=== PATIENT | female | born 1965 | race Hispanic/Latino ===

== ENCOUNTER 2017-04-30 14:29 | Emergency (ER) | payer OTHER ==
[~2017-04-30] VITALS: Ht 162.6 cm; Wt 87.5 kg
[2017-04-30] MEDS ORDERED: ONDANSETRON HCL INJ 2 MG/ML VIAL IV STA (14:37)
[2017-04-30] MEDS ORDERED: KETOROLAC TROMETHAMINE 30 MG/ML VIAL IV STA (14:37)
[2017-04-30 15:03] LABS: BASOPHILS % 0.5 % (0.0-1.0); EOSINOPHILS # (AUTO) 0.1 (0.0-0.4); EOSINOPHILS % 1.1 % (0.0-6.0); HEMATOCRIT 36.2 % (34.2-44.1); HEMOGLOBIN 12.5 g/dL (12.0-16.0); LYMPHOCYTES # (AUTO) 2.5 (1.0-3.2); MEAN CORPUSCULAR HEMOGLOBIN 30.6 pg (28-32); MEAN CORPUSCULAR HGB CONC 34.5 g/dL (31-35); MEAN CORPUSCULAR VOLUME 88.7 fL (81-99); MONOCYTES # (AUTO) 0.5 (0.2-0.8); MONOCYTES % 7.3 % (4.4-11.3); NEUTROPHILS # (AUTO) 3.4 (2.1-6.9); NEUTROPHILS % 52.8 % (38.7-80.0); PLATELET COUNT 279 x10e3/uL (140-360); RED BLOOD COUNT 4.08 x10e6/uL (3.6-5.1); RED CELL DISTRIBUTION WIDTH 12.9 % (11.7-14.4)
[2017-04-30 15:22] LABS: ALANINE AMINOTRANSFERASE 12 IU/L (0-55); ALBUMIN 3.8 g/dL (3.5-5.0); ALBUMIN/GLOBULIN RATIO 0.9 (0.8-2.0); ALKALINE PHOSPHATASE 76 IU/L (40-150); ANION GAP 14.7 mmol/L (8-16); BLOOD UREA NITROGEN 18 mg/dL (7-26); BUN/CREATININE RATIO 21 (6-25); CALCIUM 9.2 mg/dL (8.4-10.2); CARBON DIOXIDE 21 mmol/L (22-29); CHLORIDE 108 mmol/L (98-107); CREATINE KINASE 90 IU/L (29-168); CREATININE, SERUM 0.87 mg/dL (0.57-1.11); EST GLOMERULAR FILTRATION RATE > 60 ML/MIN (60-); GLUCOSE 127 mg/dL (74-118); POTASSIUM 3.7 mmol/L (3.5-5.1); SODIUM 140 mmol/L (136-145)
--- NOTE | 2017-04-30 15:27 | Diagnostic Imaging Report ---
EXAM: CT Abdomen and Pelvis WITHOUT contrast INDICATION: Abdominal pain COMPARISON: None. TECHNIQUE: Abdomen and pelvis were scanned utilizing a multidetector helical scanner from the lung base to the pubic symphysis. Coronal and sagittal reformations were obtained. The lack of intravenous contrast limits the evaluation of the solid organs, vasculature, and possible lymphadenopathy. Protocol: General survey without contrast IV CONTRAST: No intravenous contrast was administered as per physician request. ORAL CONTRAST: None. COMPLICATIONS: None. RADIATION DOSE: Total Exam DLP: 596.6 mGy*cm. CTDIvol has been reviewed. It is below the limits set by the Radiation Protocol Committee (RPC). FINDINGS: LINES: None. Lower thorax: No parenchymal abnormality. No pneumothorax. No pleural effusion. Liver: No focal mass. No hepatomegaly. Normal parenchyma. Simple cyst is present in the left lobe of the liver. Gallbladder: Cholecystectomy. Biliary tree: No intrahepatic duct dilation. No extrahepatic duct dilation. Spleen: No splenomegaly. No focal mass. Pancreas: No focal mass. Normal pancreatic duct. No peripancreatic inflammatory changes. Kidneys: Punctate calculus is present in the interpolar region of the right kidney. No obstructing calculi. No hydronephrosis or hydroureter. No cysts. No perinephric soft tissue inflammatory changes. The right kidney is slightly edematous. Adrenal glands: No adrenal nodules. Bladder: Normal urinary bladder. 3.1 mm calculus is present in the urinary bladder, series 3 image 146. Pelvic organs: Normal. GI: No bowel wall thickening. No air-fluid levels. The stomach and small bowel are normal. The colon is normal. Normal appendix. A moderate amount of retained feces limits intraluminal evaluation of the colon. Peritoneum/retroperitoneum: No pneumoperitoneum. No ascites. No drainable fluid collection. Lymph nodes: No lymphadenopathy. . Vessels: No focal abnormality. . Limited evaluation. Bones: No focal abnormality. . Soft tissues: No focal abnormality. IMPRESSION: Calculus within the urinary bladder may represent a recently passed stone. Nonobstructing right nephrolithiasis. Signed by: Dr. Sean Israel M.D. on 04/30/2017 3:24 PM
[2017-04-30 15:28] LABS: TROPONIN I < 0.001 ng/mL (0-0.300)
[2017-04-30 16:52] LABS: BILIRUBIN,URINE NEGATIVE (NEGATIVE); COLOR,URINE YELLOW (YELLOW); KETONES,URINE NEGATIVE (NEGATIVE); LEUKOCYTE ESTERASE ,URINE NEGATIVE (NEGATIVE); NITRITE,URINE NEGATIVE (NEGATIVE); PROTEIN,URINE DIPSTICK NEGATIVE (NEGATIVE); URINE UROBILINOGEN 0.2 mg/dL (0.2 - 1)
[2017-04-30 16:53] LABS: CLARITY,URINE HAZY (CLEAR)
[2017-04-30 16:59] LABS: BACTERIA,URINE FEW /HPF; EPITHELIAL CELLS,URINE FEW /LPF; WBC,URINE (MAN) 0-5 /HPF (0-5)
[2017-04-30 17:01] LABS: RBC,URINE 21-50 /HPF (0-5)
== END 2017-04-30 19:42 | disposition home or self-care (01) ==
LOC: ER 14:29
DX: R10.31 Right lower quadrant pain (principal); R11.2 Nausea with vomiting, unspecified; N20.0 Calculus of kidney; I10 Essential (primary) hypertension; E03.9 Hypothyroidism, unspecified
CPT/HCPCS: 36415; 74176; 80053; 81001; 82550; 82553; 83880; 84484; 85025; 87086; 93005; 99284; J1885; J2405

== ENCOUNTER 2020-12-14 17:32 | Emergency (ER) | payer OTHER ==
[~2020-12-14] VITALS: Ht 162.6 cm; Wt 87.5 kg
[2020-12-14] MEDS ORDERED: CYCLOBENZAPRINE HCL 10 MG TAB PO ONE (20:15)
[2020-12-14] MEDS ORDERED: HYDROCODONE/APAP 5MG-325MG TAB PO ONE (20:15)
[2020-12-14] MEDS ORDERED: CYCLOBENZAPRINE HCL 10 MG TAB ONE (20:29)
[2020-12-14] MEDS ORDERED: HYDROCODONE/APAP 5MG-325MG TAB ONE (20:30)
[2020-12-14] MEDS ORDERED: TRAMADOL HCL 50 MG TAB PO ONE (22:30)
[2020-12-14] MEDS ORDERED: ONDANSETRON HCL 4 MG ORAL DISINTEGRATING TAB PO ONE (22:30)
[2020-12-14] MEDS ORDERED: HYDROCODON-ACE1 EA12 PO ×2 (22:35→22:50)
[2020-12-14] MEDS ORDERED: CYCLOBENZAPRINE10 MG PO (22:39)
== END 2020-12-14 23:20 | disposition home or self-care (01) ==
LOC: FSED 19:45
DX: R51.9 Headache, unspecified (principal); S40.012A Contusion of left shoulder, initial encounter; S60.221A Contusion of right hand, initial encounter; S80.02XA Contusion of left knee, initial encounter; S80.01XA Contusion of right knee, initial encounter; V53.5XXA Driver of pick-up truck or van injured in collision with car, pick-up truck or van in traffic accident, initial encounter; Y92.488 Other paved roadways as the place of occurrence of the external cause; R11.0 Nausea; Z86.79 Personal history of other diseases of the circulatory system; E03.9 Hypothyroidism, unspecified; Z79.02 Long term (current) use of antithrombotics/antiplatelets
CPT/HCPCS: 70450; 99283